=== PATIENT | male | born 1985 | race Two or more races ===

== ENCOUNTER 2017-11-25 15:08 | Emergency (ER) | payer OTHER ==
[~2017-11-25] VITALS: Ht 172.7 cm; Wt 77.1 kg
[2017-11-25 15:13] VITALS: Ht 172.7 cm; Wt 77.1 kg
[2017-11-25 17:28] VITALS: BP 140/81
== END 2017-11-25 17:28 | disposition home or self-care (01) ==
LOC: ED 15:08
DX: T17.298A Other foreign object in pharynx causing other injury, initial encounter (principal); F41.9 Anxiety disorder, unspecified; I10 Essential (primary) hypertension; X58.XXXA Exposure to other specified factors, initial encounter; Y93.9 Activity, unspecified; Y92.89 Other specified places as the place of occurrence of the external cause; Y99.8 Other external cause status
CPT/HCPCS: J1610